=== PATIENT | female | born 1955 | race American Indian/Alaskan Native ===

== ENCOUNTER 2016-12-31 10:15 | Outpatient (CLI) | payer OTHER ==
--- NOTE | 2016-12-31 15:27 | Mammography Report ---
BILATERAL MAMMOGRAM with CAD: HISTORY: Cancer screening. Comparison study is dated December 31, 2015. FINDINGS: There are scattered fibroglandular densities (approximately 25%-50% glandular). No mass, distortion, suspicious calcification, or skin change is seen. IMPRESSION: Negative mammogram. There is no mammographic evidence of malignancy. RECOMMENDATION: Follow-up per ACS guidelines. BI-RADS CATEGORY: 1 = Negative ACR BI-RADS MAMMOGRAPHIC CODES: 0 = Needs additional imaging evaluation; 1 = Negative; 2 = Benign; 3 = Probably benign; 4 = Suspicious; 5 = Malignant; 6 = Known biopsy-proven malignancy COMMENT: 1. Dense breast tissue, i.e., adenosis, fibrocystic changes, etc., may obscure an underlying neoplasm. 2. Approximately 10% of cancers are not detected with mammography. 3. A negative mammography report should not delay biopsy if a clinically suspicious mass is present. COMMENT: Patient follow-up letters are generated in [employer].
== END 2016-12-31 10:16 | disposition home or self-care (01) ==
LOC: MAMMO 10:15
PROVIDERS: ATTEND Obstetrics & Gynecology Gynecology
DX: Z12.31 Encounter for screening mammogram for malignant neoplasm of breast (principal)
CPT/HCPCS: 77067; G0202

== ENCOUNTER 2017-12-30 09:28 | Outpatient (CLI) | payer OTHER ==
--- NOTE | 2017-12-31 13:22 | Mammography Report ---
BILATERAL DIGITAL SCREENING MAMMOGRAM with CAD: 12/30/17 09:28:00 CLINICAL: Routine screening. COMPARISON:12/31/16 FINDINGS: There are scattered areas of fibroglandular density. No mass, architectural distortion or suspicious calcifications. IMPRESSION: No mammographic evidence of malignancy. BI-RADS CATEGORY: 2 -- Benign RECOMMENDATION: Routine mammographic screening in one year. COMMENT: Patient follow-up letters are generated by our [employer] application.
== END 2017-12-30 09:29 | disposition home or self-care (01) ==
LOC: MAMMO 09:28
PROVIDERS: ATTEND Obstetrics & Gynecology Gynecology
DX: Z12.31 Encounter for screening mammogram for malignant neoplasm of breast (principal)
CPT/HCPCS: 77067

== ENCOUNTER 2019-01-12 09:48 | Outpatient (CLI) | payer MEDICARE ==
--- NOTE | 2019-01-12 13:01 | Mammography Report ---
RIGHT DIGITAL DIAGNOSTIC MAMMOGRAM : 01/12/19 09:48:00 CLINICAL: Recalled for asymmetry. COMPARISON:01/03/19 screening FINDINGS: Additional mammographic views were performed and are negative.A few scattered benign calcifications. IMPRESSION: No mammographic evidence of malignancy. BI-RADS CATEGORY: 2 - - Benign RECOMMENDATION: Routine mammographic screening in one year. COMMENT: 1. Dense breast tissue, i.e., adenosis, fibrocystic changes, etc., may obscure an underlying neoplasm. 2. Approximately 10% of cancers are not detected with mammography. 3. A negative mammography report should not delay biopsy if a clinically suspicious mass is present. COMMENT: Patient follow-up letters are generated via our [employer] application.
== END 2019-01-12 09:49 | disposition home or self-care (01) ==
LOC: MAMMO 09:48
PROVIDERS: ATTEND Obstetrics & Gynecology Gynecology
DX: N65.1 Disproportion of reconstructed breast (principal)

== ENCOUNTER 2021-04-29 11:48 | Outpatient (CLI) | payer MEDICARE | END 2021-04-29 11:49 | disposition home or self-care (01) | LOC: MAMMO 11:48 | PROVIDERS: ATTEND Obstetrics & Gynecology Gynecology | DX: Z12.31 Encounter for screening mammogram for malignant neoplasm of breast (principal) | CPT/HCPCS: 77067 ==

== ENCOUNTER 2021-07-17 10:28 | Outpatient (CLI) | payer MEDICARE ==
--- NOTE | 2021-07-17 12:10 | Ultrasound Report ---
ULTRASOUND BREAST RIGHT LIMITED, 07/17/2021 CLINICAL INFORMATION / INDICATION: ABNORMAL MAMMOGRAM. Patient presents as a callback from screening mammogram for further evaluation of increasing nodularity in the right breast. TECHNIQUE: Targeted ultrasound evaluation was performed of the area of interest. COMPARISON: Prior mammogram 04/29/2021 FINDINGS: Corresponding with the nodularity seen on recent mammogram, there are a few benign cysts seen in the lower outer quadrant of the right breast, for example a 4 mm cyst in the 7:00 position located 2.5 cm from the nipple, and a 6 mm cyst in the 8:00 position located 3 cm from the nipple. No suspicious so lid lesion identified. IMPRESSION: 1. A few benign cysts account for the recent mammographic finding. No suspicious sonographic abnormal ity identified. Follow up recommendation: Routine yearly BI-RADS Category 2: Benign. A normal or "negative" report should not preclude biopsy or follow-up of a clinically suspicious find ing. Signer Name: Anitha Ge MD Signed: 07/17/2021 12:06 PM Workstation Name: [id number]
== END 2021-07-17 10:29 | disposition home or self-care (01) ==
LOC: MAMMO 10:28
PROVIDERS: ATTEND Obstetrics & Gynecology Gynecology
DX: N60.01 Solitary cyst of right breast (principal); N65.1 Disproportion of reconstructed breast